=== PATIENT | male | born 1985 | race Caucasian/White ===

== ENCOUNTER → 2016-07-12 | Outpatient (CLI) | payer OTHER ==
--- NOTE | 2016-07-17 17:12 | CDE ---
ADMIT: 07/12/2016 RM/LOC: [facility] MR#: [id number] [id number] [place], [place] [phone] JOSE WELCH [address] [place] [address] Chemical Dependency Evaluation SEX: M AGE: 31 : 1985 A. DEMOGRAPHICS: NAME: Jose Welch. DATE OF : 1985. EVALUATING COUNSELOR: DAYANARA Mora LADC. DATE OF EVALUATION: 07/12/2016. B. PRESENTING PROBLEM/CHIEF COMPLAINT: Client reported he did not finish his aftercare in [place] due to moving to [place]. His event security officer wanted him to have this evaluation completed to see if he needed to get back into outpatient or what our recommendation will be. C. 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 He stated he is not under any doctor's care for that or any other reasons. He has no health concerns, and he is not taking any medications. D. WORK/SCHOOL/ HISTORY: Client stated he graduated from high school. 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 He stated he is currently working for [employer] and has been there for about a month. 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 He works approximately 40 plus hours a week. He denies being in the . E. ALCOHOL/DRUG ASSESSMENT SUMMARY: ALCOHOL: Age of first use for alcohol was 14. He stated in his early 20s, he drank a couple times a week, primarily on the weekends. He stated he would drink seven or eight beers each time, and this happened every weekend. He got sober and stayed sober for six years and then at age 27, began drinking again. For the next couple years, he drank on the weekends, as well, and drank approximately eight beers. His date of last use was November of 2015. MARIJUANA: Age of first use was 14. He stated for a while, he was a daily user and then he just started smoking on the weekends. He stated he did not do it on a regular basis. His date of last use was early in 2014. COCAINE: No use reported. METHAMPHETAMINE: Age of first use was 29. Client stated from December of 2014 to 02/26/2016, he was a daily user. He stated he smoked about half a gram a day. He has not used any meth since 02/26/2016. HALLUCINOGENS: Age of first use is 15. He stated he tried it a couple times, but has not used any since 2000. HEROIN: No use reported. PRESCRIPTION DRUGS: No use reported. ADMIT: 07/12/2016 RM/LOC: [facility] MR#: [id number] [address] [id number] JOSE WELCH [address] [place] [address] Chemical Dependency Evaluation SEX: M AGE: 31 : 1985 OTHER DRUGS (INHALANTS, OVER THE COUNTER, ETC): No use reported. NICOTINE: Age of first use is 14, he smokes about a half a pack a day. Negative consequences include: He lost custody of his daughter temporarily, he lost relationships, he was short on money for bills, and he got in legal trouble. F. LEGAL HISTORY: Client stated in 2000, he got charged with possession of marijuana and possession of LSD and he was put on intense probation. In 2005, he got a domestic assault charge and had to do some [facility] time. In 2015, he was charged with theft in the second degree and trespassing, he got placed on probation for the theft charge and spent 30 days in [facility] on the trespassing charge. He is currently on probation in [place] and he stated they are conducting his probation via telephone. G. FAMILY/SOCIAL/PEER HISTORY: Client reported he was raised by his parents in [place] and [place], and had a really good childhood. He was active in sports and in the outdoors. He stated his parents are still together and he has a very good relationship with both of them. Client stated he has a 10-year-old daughter he talks to on a daily basis and he does pay child support. He also has two sisters. The client reported he prefers to associate with people who are not drinking or using, and is currently living in the [facility] with other sober men. H. PSYCHIATRIC/BEHAVIORAL HISTORY: Client stated he has never been suicidal nor has he been under any inpatient or outpatient treatment for mental health. He did state he went to treatment at [facility] in [place], [place] in January of 2015. He stated he got out, and 15 days later he relapsed. He was then charged with another crime and went back to [facility] for 50 days. When he was released from [facility], he immediately went back to treatment. He stated he has not used or drank anything since then. He is attending 3-5 meetings a week, and talks to his sponsor on a daily basis. I. COLLATERAL INFORMATION: I did make contact with his naval gunfire liaison officer, who stated she has no concerns for him right now, and asked that I send her this evaluation. She voiced agreement with the recommendation. THE DRINKER TYPE RATING: Is a measure of how the client perceives their own drinking and/or using. This rating is indicative of how resistant or accepting the person is to the drinking problem. The client chose their rating from the following classifications: ADMIT: 07/12/2016 RM/LOC: [facility] MR#: [id number] [address] [id number] JOSE WELCH [address] [place] [address] Chemical Dependency Evaluation SEX: M AGE: 31 : 1985 ALCOHOL Total Abstainer Light Social (non-problem) Drinker Moderate Social (non-problem) Drinker User Heavy Social (non-problem)Drinker Problem Drinker Alcoholic OTHER DRUG Nonuser Light Social (non-problem) User Moderate Social (non-problem) User Heavy Social (non-problem) User Problem User Addicted/Dependent The client rated as light social nonproblem drinker and heavy social non problem user of other drugs. SUBSTANCE ABUSE SUBTLE SCREENING INVENTORY (SASSI): The SASSI is an assessment tool specifically designed to provide a clearer picture of what lies beneath the facade presented by most patients or clients. Scores on this assessment aid in distinguishing nonabusers from abusers, alcoholics from drug abusers and nondefensive clients from defensive ones. The incorporation of a "denial scale" further enhances the ability to make an accurate recommendation. Client scores are: Face Valid Alcohol (FVA): 5. Face Valid Other Drugs (FVOD): 12. Symptoms (SYM): 5. Obvious Attributes (OAT): 5. Subtle Attributes (SAT): 4. Defensiveness (DEF): 8. Supplemental Addiction Measure (ANJEL): 9. Family versus Controls (FAM): 8. Correctional (COR): 5. Random Answering Pattern (RAP): 0. These scores would indicate that he has a high probability of having a substance dependence disorder. We administered the ASI. Please see attached summary sheet. ADMIT: 07/12/2016 RM/LOC: [facility] MR#: [id number] [address] [address] JOSE WELCH [facility] [address] Chemical Dependency Evaluation SEX: M AGE: 31 : 1985 K. CLINICAL IMPRESSION: Client presented very well and was open and believed to be honest with his answers. He stated he enjoys living at the [facility] and has a good sponsor that he keeps in contact with. Diagnoses: 1. 303.90, Alcohol Use Disorder, Severe, in full sustained remission. 2. 304.30, Cannabis Use Disorder, Severe, in full sustained remission. 3. 304.40, Stimulant Use Disorder, Severe, in full sustained remission. L. RECOMMENDATIONS PRESENTED TO CLIENT: At this time, I am not recommending any treatment for this client. I do, however, recommend that he continue attending 3 to 5 AA or NA meetings per week, continue to abstain from all drugs and alcohol, and keep in contact with his naval gunfire liaison officer and sponsor on a regular basis. M. CLIENT/FAMILY RESPONSE: He is in agreement with this. ADMIT: 07/12/2016 RM/LOC: [facility] MR#: [id number] [facility] [address] [phone] JOSE WELCH [address] [place] [address] Chemical Dependency Evaluation SEX: M AGE: 31 : 1985 ASA CLINICAL ASSESSMENT CRITERIA: Low/Medium/High Dimension 1 = Intoxication and Withdrawal (i.e. history of withdrawal, level of current use): Low. Dimension 2 = Medical (i.e. , diabetes, medications, chronic conditions): Low. Dimension 3 = Emotional/Behavior Conditions (i.e. psych history, impulsivity, depression, anxiety, trauma history): Low. Dimension 4 = Treatment Acceptance/Resistance (i.e. past history, minimization/blame, acknowledgement of problem, pressure to seek treatment, does not feel they have a problem): Low. Dimension 5 = Relapse Potential (i.e. inability to abstain, use despite consequences, significant preoccupation, relapse despite outpatient treatment attempts): Low. Dimension 6 = Recovery/Living Environment (i.e. current users reside in environment, family attitude, lack of consistent adult support in living environment, high exposure to using in social/work environment): Low. CRIMINOGENIC RISK FACTORS: Low/Moderate/High Antisocial Attitudes: Low. Antisocial Peers: Low. Self Control Skills: Low. Family Dysfunction: Low. Past Criminality: Medium. DAYANARA Mora LADC/ ildefonso JOB #: [id number] CC:
== END | disposition home or self-care (01) ==
LOC: ADTC.GI 08:59
DX: F10.20 Alcohol dependence, uncomplicated (principal); F12.20 Cannabis dependence, uncomplicated; F15.20 Other stimulant dependence, uncomplicated